=== PATIENT | male | born 1975 | race Caucasian/White ===

== ENCOUNTER → 2020-09-21 | Outpatient (CLI) | payer BC ==
[~2020-09-21] MED LIST: HYDROCODON-ACE1 EAC7 PO; NOHOMEMEDICATIONS
== END ==
LOC: M.LAB 08:23
PROVIDERS: ATTEND Surgery
DX: Z01.812 Encounter for preprocedural laboratory examination (principal); Z20.828 Contact with and (suspected) exposure to other viral communicable diseases

== ENCOUNTER → 2020-09-24 | Day surgery (SDC) | payer BC ==
--- NOTE | ~2020-09-24 | OP ---
[facility] [address] [place] [address] OPERATIVE REPORT Name: CHHAYA HILLIARD Room: [facility]#: [id number] Admission: 09/24/20 Attend Phys: Antony Kimball Discharge: Date of : 77 Report #: [id number] THIS REPORT FOR: cc: Mitchel Tejeda Russell J. DO ~ Patterson, Jonathan D. MD DATE OF SERVICE: 09/24/2020 PREOPERATIVE DIAGNOSIS: Bilateral inguinal hernias. POSTOPERATIVE DIAGNOSIS: Bilateral inguinal hernias. OPERATION: Laparoscopic repair of bilateral inguinal hernias with mesh. SURGEON: Antony Kimball MD ANESTHESIA: General. ESTIMATED BLOOD LOSS: Minimal. SPECIMEN: None. DESCRIPTION OF PROCEDURE: After informed consent was obtained, the patient was brought to the operating room and placed supine. SCDs were placed and working, preoperative antibiotics were administered, general anesthesia was induced. Doan catheter was placed and the abdomen was prepped and draped in the usual sterile fashion. A 10 mm incision was made below the umbilicus. Fascia was incised and a trocar was placed. Pneumoperitoneum was established. Right and left lower quadrant 5 mm trocars were placed. The attention was then directed to the right side. The right ASIS peritoneum was scored. It was then incised medially and reflected inferiorly. The cord structures were fully identified. The epigastric vessels and iliac vessels were identified. Pubic bone was cleaned off. He had an indirect hernia and this was fully reduced, A large Bard 3DMax mesh was inserted. It was tacked to Ramon's ligament with 2 absorbable tacks. I then reapproximated the peritoneum with a running V-Loc suture. I then directed my attention to the left side. The peritoneum was scored at the left ASIS. Peritoneum was incised and reflected medially. Again, the pubic bone was identified. The cord structures were identified. An indirect hernia sac was then reduced. Another large Bard 3DMax mesh was inserted. It was tacked to Ramon's ligament with 2 absorbable tacks. I then reapproximated the peritoneum with a running V-Loc suture. Both areas were instilled with 10 mL of 0.5% Marcaine solution. The ports were removed under direct vision. The fascia was closed with a [id number] 0 Vicryl. Skin was closed with 4-0 Monocryl. Incisions were sealed [place] [address] OPERATIVE REPORT Name: CHHAYA HILLIARD Room: [facility]#: [id number] Admission: 09/24/20 Attend Phys: Antony Kimball Discharge: Date of : 77 Report #: [id number] COMPLICATIONS: None. DISPOSITION: The patient was taken to recovery in satisfactory condition. By: [id number] Kimball MD /kb
== END | disposition home or self-care (01) ==
LOC: M.SUR 06:16
PROVIDERS: ATTEND Surgery
DX: K40.20 Bilateral inguinal hernia, without obstruction or gangrene, not specified as recurrent (principal); R10.9 Unspecified abdominal pain; Z98.890 Other specified postprocedural states; Z79.899 Other long term (current) drug therapy; Z79.891 Long term (current) use of opiate analgesic